=== PATIENT | male | born 1960 | race Caucasian/White ===

== ENCOUNTER 2023-07-10 20:22 | Outpatient (REF) | payer MEDICARE, MEDICAID, SELFPAY ==
[2023-07-10 21:26] LABS: HCT 25.2 % (40.0-50.0); HGB 8.3 g/dL (13.5-17.5); MCH 34.4 pg (27.0-33.0); MCHC 32.9 % (32.0-36.0); MCV 105 fL (80-95); MPV 8.4 fL (8.0-11.0); Platelet Count 344 10^3/uL (130-400); RBC 2.41 10^6/uL (4.36-5.78); RDW 12.3 % (11.8-14.1); RDW-SD 47.3 fL; WBC 8.26 10^3/uL (4.4-10.8)
== END 2023-07-10 20:23 | disposition home or self-care (01) ==
LOC: LBN 20:22
PROVIDERS: Visit Provider Student in an Organized Health Care Education/Training Program
DX: E87.1 Hypo-osmolality and hyponatremia (principal); E86.0 Dehydration; R62.7 Adult failure to thrive
CPT/HCPCS: 85027